=== PATIENT | female | born 1995 | race Caucasian/White ===

== ENCOUNTER 2017-02-23 16:48 | Emergency (ER) | payer BC ==
[~2017-02-23] VITALS: Ht 157.5 cm; Wt 54.0 kg
[~2017-02-23 16:48] MED LIST: ADDERALL XR 3030 MG PO; BIRTH CONTROL PILL PO; NAPROSYN500 MG PO
[2017-02-23] MEDS ORDERED: TRAMADOL HCL50 MG PO (19:45)
== END 2017-02-23 20:22 | disposition home or self-care (01) ==
LOC: EME 16:48
PROC: 2W3CX1Z Immobilization of Right Lower Arm using Splint (ICD-10-PCS; principal; 2017-02-23)
DX: S62.624A Displaced fracture of middle phalanx of right ring finger, initial encounter for closed fracture (principal); W20.8XXA Other cause of strike by thrown, projected or falling object, initial encounter; F17.200 Nicotine dependence, unspecified, uncomplicated; F10.10 Alcohol abuse, uncomplicated; F12.10 Cannabis abuse, uncomplicated; Z71.6 Tobacco abuse counseling
CPT/HCPCS: 73130; 99281; 99283

== ENCOUNTER 2017-09-27 19:10 | Emergency (ER) | payer BC ==
[~2017-09-27] VITALS: Ht 157.5 cm; Wt 53.7 kg
[~2017-09-27 19:10] MED LIST changes: +TRAMADOL HCL50 MG PO
[2017-09-27 19:44] LABS: HEMATOCRIT 43.6 % (36.0-46.0); HEMOGLOBIN 14.6 G/DL (11.9-15.5); MCH 27.7 PG (29.0-34.0); MCHC 33.5 G/DL (30.0-36.0); MCV 82.7 FL (83-99); RBC DIS.WIDTH-CV 13.1 % (11.8-14.6); RBC DIS.WIDTH-SD 39.2 % (39-53); RED BLOOD COUNT 5.27 M/uL (3.80-5.20); WHITE BLOOD COUNT 9.2 K/uL (4.1-10.2)
[2017-09-27 20:01] LABS: D-DIMER ELISA < 150.00 ng/mLDDU (<230)
[2017-09-27 20:02] LABS: CHLORIDE 106 mEq/L (99-109); POTASSIUM 3.6 mEq/L (3.7-5.4); SODIUM 140 mEq/L (136-147)
[2017-09-27 20:03] LABS: GLUCOSE 74 mg/dL (70-99)
[2017-09-27 20:06] LABS: TROP-I INTERPRETATION NEGATIVE; TROPONIN-I < 0.01 ng/mL (0.0-0.30)
[2017-09-27 20:07] LABS: CREATININE 0.7 mg/dL (0.6-1.3); GFR ESTIMATE (CALCULATED) > 59 mL/min/
[2017-09-27 20:08] LABS: UREA NITROGEN (BUN) 7 mg/dL (9-23)
[2017-09-27 20:15] LABS: QUANTITATIVE HCG < 4.0 MIU/ML
[2017-09-27 20:31] LABS: PLAT.SUFFICIENCY ADEQUATE; PLATELET COUNT 223 K/uL (156-360)
[2017-09-27] MEDS ORDERED: NAPROSYN500 MG PO (20:43)
[2017-09-27 21:02] VITALS: BP 111/74
== END 2017-09-27 21:02 | disposition home or self-care (01) ==
LOC: EME 19:10
PROVIDERS: Physician Assistant
DX: M94.0 Chondrocostal junction syndrome [Tietze] (principal); F17.200 Nicotine dependence, unspecified, uncomplicated
CPT/HCPCS: 71046; 80048; 84484; 84702; 85027; 85379; 93005; 99281; 99284; J1885; Q0177

== ENCOUNTER 2017-12-03 10:30 | Emergency (ER) | payer BC ==
[~2017-12-03] VITALS: Ht 157.5 cm; Wt 53.4 kg
[2017-12-03 11:27] LABS: HEMATOCRIT 43.3 % (36.0-46.0); HEMOGLOBIN 14.4 G/DL (11.9-15.5); MCH 28.3 PG (29.0-34.0); MCHC 33.3 G/DL (30.0-36.0); MCV 85.1 FL (83-99); RBC DIS.WIDTH-CV 12.9 % (11.8-14.6); RBC DIS.WIDTH-SD 39.8 % (39-53); RED BLOOD COUNT 5.09 M/uL (3.80-5.20); WHITE BLOOD COUNT 11.1 K/uL (4.1-10.2)
[2017-12-03 11:34] LABS: ALBUMIN 4.6 g/dL (3.2-4.8); CHLORIDE 104 mEq/L (99-109); POTASSIUM 4.3 mEq/L (3.7-5.4); SODIUM 137 mEq/L (136-147)
[2017-12-03 11:37] LABS: GLUCOSE 88 mg/dL (70-99); TOTAL PROTEIN 7.5 g/dL (6.4-8.3)
[2017-12-03 11:40] LABS: ALKALINE PHOSPHATASE 88 IU/L (3-129)
[2017-12-03 11:41] LABS: CREATININE 0.7 mg/dL (0.6-1.3); GFR ESTIMATE (CALCULATED) > 59 mL/min/
[2017-12-03 11:42] LABS: AST (GOT) 18 IU/L (2-34); DIRECT BILIRUBIN 0.7 mg/dL (0.0-0.3); UREA NITROGEN (BUN) 5 mg/dL (9-23)
[2017-12-03 11:43] LABS: ALT (GPT) 16 IU/L (3-49)
[2017-12-03 11:44] LABS: LIPASE 12 U/L (1.0-51.0)
[2017-12-03 11:49] LABS: QUANTITATIVE HCG < 4.0 MIU/ML
[2017-12-03 11:59] LABS: SOURCE URINE
[2017-12-03 12:06] LABS: APPEARANCE CLEAR ((CLEAR)); BILIRUBIN NEGATIVE; BLOOD MODERATE; COLOR YELLOW ((YELLOW)); GLUCOSE (STRIP) NEGATIVE; KETONES 5; LEUKOCYTES NEGATIVE; NITRITE NEGATIVE; PROTEIN (STRIP) NEGATIVE; SPECIFIC GRAVITY 1.005 (1.000-1.030); UROBILINOGEN 0.2 MG/DL (0.2-1.0)
[2017-12-03 12:10] LABS: BACTERIA RARE /HPF; EPITHELIAL CELLS RARE /HPF; MUCUS NONE SEEN /LPF; RED BLOOD CELLS 0-5 /HPF (0-5); WHITE BLOOD CELLS 0-5 /HPF (0-5)
[2017-12-03 13:39] LABS: PLAT.SUFFICIENCY ADEQUATE; PLATELET COUNT 221 K/uL (156-360)
[2017-12-03] MEDS ORDERED: ZOFRAN4 MG PO (13:39)
[2017-12-03 13:47] VITALS: BP 114/68
[2017-12-06 13:49] LABS: CHLAMYDIA TRACHOMATIS NEGATIVE; NEISSERIA GONORRHOEAE NEGATIVE
== END 2017-12-03 13:49 | disposition home or self-care (01) ==
LOC: EME 10:30
PROVIDERS: Emergency Medicine
DX: N83.201 Unspecified ovarian cyst, right side (principal); F90.9 Attention-deficit hyperactivity disorder, unspecified type; F17.200 Nicotine dependence, unspecified, uncomplicated; Z79.3 Long term (current) use of hormonal contraceptives
CPT/HCPCS: 74176; 80048; 80076; 81003; 83690; 84702; 85027; 87086; 87491; 87591; 99281; 99284